=== PATIENT | female | born 1980 | race Caucasian/White ===

== ENCOUNTER 2018-12-01 19:16 | Emergency (ER) | payer MEDICAID ==
[2018-12-01] MEDS ORDERED: 0.9 % SODIUM CHLORIDE 1,000 ML BAG IV ONE (19:41)
--- NOTE | 2018-12-01 19:41 | Emergency Department Record ---
History of Present Illness - General Chief complaint: Flank Pain Stated complaint: L FLANK PAIN Time Seen by Provider: 12/01/18 19:35 Source: Patient Mode of Arrival: Ambulatory Limitations: No limitations - History of Present Illness Initial comments: The patient is here due to a few day hx of dysuria with intermittent L flank pain. She denies any fever but is having some LLQ AP at times. The patient denies any hx of any trauma, fever, chills, vomiting, diarrhea, or vaginal issues. Onset/Timin -: Week(s) Location: Suprapubic Radiation: L flank, LLQ Severity: Severe Severity scale (1-10): 8 Quality: Sharp Consistency: Intermittent, Getting worse Improves with: None Worsens with: Urination Patient : No Associated Symptoms: Abdominal pain, Dysuria, Nausea/vomiting - Related Data Sexually active: Yes Previous Rx's Medication Instructions Recorded Nitrofurantoin Ada [Macrobid] 100 mg PO BID #10 capsule 12/01/18 Allergies Allergy/AdvReac Type Severity Reaction Status Date / Time No Known Drug Allergies Allergy Verified 12/01/18 19:35 Travel Screening - Travel/Exposure Within Last 30 Days Have you traveled within the last 30 days?: No - Travel Symptoms Symptom Screening: None Review of Systems Constitutional: Denies: Chills, Fever Eyes: Denies: Eye discharge ENT: Denies: Congestion Respiratory: Denies: Cough, Dyspnea Past Medical History - SOCIAL HISTORY Smoking Status: Current every day smoker Alcohol Use: None Drug Use: None - RESPIRATORY Hx Respiratory Disorders: No - CARDIOVASCULAR Hx Cardio Disorders: No - NEURO Hx Neuro Disorders: No - GI Hx GI Disorders: No - Hx Genitourinary Disorders: Yes Hx UTI: Yes - ENDOCRINE Hx Endocrine Disorders: No - MUSCULOSKELETAL Hx Musculoskeletal Disorders: No - PSYCH Hx Psych Problems: No - HEMATOLOGY/ONCOLOGY Hx Hematology/Oncology Disorders: No Family Medical History Any Significant Family History?: Yes Family Hx Comment (NOT TO BE USED IN PLACE OF ITEMS BELOW): mother-reproductive issues Physical Exam - General General Appearance: Alert, Oriented x3, Cooperative, No acute distress - Head Head exam: Atraumatic, Normocephalic, Normal inspection - Eye Eye exam: Normal appearance, PERRL - ENT Throat exam: Normal inspection. negative: Tonsillar erythema, Tonsillar exudate - Neck Neck exam: Normal inspection, Full ROM. negative: Tenderness - Respiratory Respiratory exam: Normal lung sounds bilaterally. negative: Respiratory distress - Cardiovascular Cardiovascular Exam: Regular rate, Normal rhythm, Normal heart sounds - GI/Abdominal GI/Abdominal exam: Soft, Normal bowel sounds. negative: Rebound, Rigid, Tenderness - Extremities Extremities exam: Normal inspection, Full ROM, Normal capillary refill. negative: Tenderness - Back Back exam: Denies: CVA tenderness (R), CVA tenderness (L) - Neurological Neurological exam: Alert, Normal gait. negative: Abnormal gait, Motor sensory deficit - Skin Skin exam: negative: Rash Course Vital Signs 12/01/18 12/01/18 19:26 19:37 Temperature 98.1 F Pulse Rate 74 Respiratory 20 Rate Blood Pressure 118/81 Pulse Ox 97 - Reevaluation(s) Reevaluation #1: The patient is doing very well at this time. She is resting comfortably listening to music on the bed. She is very calm and cooperative in no pain at this time. I did discuss the need for the abdominal CT to R/O stone or hydro. 12/01/18 20:43 Reevaluation #2: The patient is doing very well at this time. She denies any need for any pain medicines and denies any pain at this time. I did discuss the normal lab tests, UA, and CT scan with her. Due to the feeling of dysuria with trace leuk est we will place the patient on an oral Abx. 12/01/18 21:51 Medical Decision Making - Data Complexity MDM Data: Labs Ordered and/or Reviewed, X-Ray Ordered and/or Reviewed - Lab Data Result diagrams: 12/01/18 19:31 12/01/18 19:31 - Radiology Data Radiology results: Report reviewed (CT: Neg for any acute changes.) Disposition Disposition: Discharge Clinical Impression: UTI (urinary tract infection) Qualifiers: Urinary tract infection type: acute cystitis Hematuria presence: without hematuria Qualified Code(s): N30.00 - Acute cystitis without hematuria Disposition: Home, Self-Care Condition: (2) Stable Instructions: Flank Pain (ED) Additional Instructions: PLease take the Macrobid as directed and use TYlenol or Motrin for pain. Please see your family doctor for recheck next week and return to the ER for any worsening problems. Prescriptions: Nitrofurantoin Ada [Macrobid] 100 mg PO BID #10 capsule Forms: Patient Portal Access Time of Disposition: 21:53 Quality - Quality Measures Quality Measures: N/A - Blood Pressure Screening View Details: Yes Does Patient Have Any of the Following: No Blood Pressure Classification: Pre-Hypertensive BP Reading Systolic Measurement: 118 Diastolic Measurement: 81 Screening for High Blood Pressure: < Pre-Hypertensive BP, F/U Documented > [ [id number]] Pre-Hypertensive Follow-up Interventions: Referral to alternative/primary care provider.
[2018-12-01 19:52] LABS: HEMATOCRIT 39.5 % (35.0-47.0); HEMOGLOBIN 13.4 gm/dl (11.6-16.0); MEAN CORPUSCULAR HEMOGLOBIN 30.9 pg (27-33); MEAN CORPUSCULAR HGB CONC 33.9 g/dl (32-36); MEAN PLATELET VOLUME 10.2 fl (7.4-10.4); PLATELET COUNT 380 K/uL (130-400); RED BLOOD COUNT 4.34 M/uL (3.80-5.40); RED CELL DISTRIBUTION WIDTH 12.9 % (11.5-14.5); WHITE BLOOD COUNT W/O DIFF 6.3 K/uL (4.2-12.2)
[2018-12-01 19:58] LABS: URINE BILIRUBIN NEGATIVE (NEGATIVE); URINE BLOOD LARGE (NEGATIVE); URINE KETONE TRACE (NEGATIVE); URINE LEUKOCYTE ESTERASE TRACE (NEGATIVE); URINE NITRITE POSITIVE (NEGATIVE)
[2018-12-01 20:01] LABS: HCG,QUALITATIVE URINE NEGATIVE (NEGATIVE)
[2018-12-01 20:07] LABS: BLOOD UREA NITROGEN 10 mg/dL (6-20); CREATININE 0.7 mg/dL (0.5-0.9); EST GLOMERULAR FILTRATION RATE > 60 mL/min
[2018-12-01 20:10] LABS: URINE COLOR ORANGE
[2018-12-01 20:10] LABS: GLUCOSE,RANDOM 109 mg/dL (74-109)
[2018-12-01 20:11] LABS: URINE APPEARANCE SL CLOUDY
[2018-12-01 20:13] LABS: URINE BACTERIA 2+; URINE EPITHELIAL CELLS 21 - 35 (FEW)
[2018-12-01 20:29] LABS: URINE APPEARANCE CLEAR; URINE BILIRUBIN NEGATIVE (NEGATIVE); URINE BLOOD NEGATIVE (NEGATIVE); URINE GLUCOSE (UA) NEGATIVE (NEGATIVE); URINE KETONE NEGATIVE (NEGATIVE); URINE LEUKOCYTE ESTERASE TRACE (NEGATIVE); URINE PROTEIN NEGATIVE (NEGATIVE)
[2018-12-01 20:37] LABS: URINE COLOR DARK YELLOW
[2018-12-01] MEDS ORDERED: KETOROLAC 30 MG/ML VIAL IVP ONE (20:40)
--- NOTE | 2018-12-04 13:38 | CT SCAN REPORT ---
EXAM: CT OF THE ABDOMEN AND PELVIS WITHOUT CONTRAST HISTORY: SHARP LEFT LOWER QUADRANT PAIN. DYSURIA FOR ONE WEEK. TECHNIQUE: Routine noncontrast CT of the abdomen and pelvis was performed. Lack of oral and IV contrast utilization limits evaluation of the bowel and solid viscera respectively. Comparison: None. FINDINGS: Minor patchy opacities are noted in the dependent lung bases consistent with atelectasis or less likely infiltrate. The lung bases are otherwise clear. No pleural or pericardial effusion. The heart is not enlarged. The liver, spleen, pancreas, and adrenal glands are normal in appearance. The kidneys are normal in size, position and are smoothly marginated. No nephrolithiasis nor renal mass identified. The renal collecting systems do not appear dilated. No suspicious calcification is noted along the expected course of either ureter. The mid to distal ureters are not optimally visualized due to adjacent unopacified vasculature and unopacified bowel. The gallbladder is unremarkable. The common hepatic and common bile duct are at the upper limits of normal in caliber with no obstructing lesion is seen. No intraabdominal nor retroperitoneal lymphadenopathy. The vasculature is normal with the exception of minor atherosclerotic calcification of the distal abdominal aorta and iliac arteries. Metallic fallopian tube occlusive devices are in place. No definite pelvic mass nor adenopathy. There is trace free fluid in the in the cul-de-sac. This is nonspecific, but likely physiologic. No intrinsic urinary bladder abnormality. No gross bowel dilatation nor bowel wall thickening. There is a moderate amount of stool noted throughout the colon to the level of the rectum. The appendix is at least partially visualized and normal in appearance. No lytic or blastic bone lesion. There are mild degenerative changes of the lower spine. IMPRESSION: 1. NO EVIDENCE OF NEPHROLITHIASIS NOR OBSTRUCTIVE UROPATHY. 2. NO CONVINCING EVIDENCE OF AN ACUTE INTRAABDOMINAL NOR INTRAPELVIC PROCESS. 3. TRACE FREE FLUID IN THE CUL-DE-SAC IS NONSPECIFIC, BUT LIKELY PHYSIOLOGIC. 4. MINOR PATCHY OPACITIES IN THE DEPENDENT LUNG BASES CONSISTENT WITH ATELECTASIS OR LESS LIKELY INFILTRATE. MODERATE AMOUNT OF STOOL THROUGHOUT THE COLON. JOB NUMBER: [id number] [facility]
== END 2018-12-01 22:17 | disposition home or self-care (01) ==
LOC: ER 19:16
DX: N30.00 Acute cystitis without hematuria (principal); R10.32 Left lower quadrant pain; R11.2 Nausea with vomiting, unspecified; R30.0 Dysuria; F17.210 Nicotine dependence, cigarettes, uncomplicated
CPT/HCPCS: 74176; 80048; 81001; 81003; 81025; 85027; 99283; 99284